=== PATIENT | female | born 1970 | race Caucasian/White ===

== ENCOUNTER → 2020-10-19 | Outpatient (CLI) | payer OTHER ==
[2020-10-21 07:11] LABS: RHEUMATOID ARTHRITIS FACTOR <10.0 IU/mL (0.0-13.9); VITAMIN D, 25-HYDROXY 11.7 ng/mL (30.0-100.0)
[2020-10-22 00:09] LABS: CCP ANTIBODIES IGG/IGA 14 units (0-19)
== END ==
LOC: LAB 14:49
PROVIDERS: Nurse Practitioner Family
DX: D89.9 Disorder involving the immune mechanism, unspecified (principal); M25.50 Pain in unspecified joint; R76.8 Other specified abnormal immunological findings in serum; M79.10 Myalgia, unspecified site
CPT/HCPCS: 82550; 82728; 83520; 85652; 86140; 86200; 86431